=== PATIENT | male | born 1965 | race African-American/Black ===

== ENCOUNTER 2019-06-25 11:38 | Emergency (ER) | payer MEDICAID ==
[~2019-06-25] VITALS: Ht 177.8 cm; Wt 73.0 kg
[2019-06-25] MEDS ORDERED: LEVETIRACETAM 500MG PREMIX 100 ML IV ONE (12:30)
[2019-06-25 13:08] LABS: BASOPHILS % 0.7 % (0.0-2.0); EOSINOPHILS % 1.2 % (0.0-5.0); HEMATOCRIT. 48.7 % (42.0-52.0); HEMOGLOBIN. 15.9 g/dL (14.0-18.0); LYMPHOCYTES % 19.5 % (20.0-50.0); MEAN CORPUSCULAR HEMOGLOBIN 28.8 pg (28.0-32.0); MEAN PLATELET VOLUME 10.1 fl (7.4-10.4); NEUTROPHILS % 67.6 % (40.0-76.0); PLATELET 132 x1000/uL (130-400); RED BLOOD CELL COUNT 5.54 mill/uL (4.7-6.1); RED CELL DISTRIBUTION WIDTH 13.6 % (11.6-14.6)
[2019-06-25 13:18] LABS: CHLORIDE 108 mEq/L (98-107)
[2019-06-25 13:22] LABS: ETHANOL BLOOD < 10 mg/dL
[2019-06-25 15:07] VITALS: BP 117/82
== END 2019-06-26 14:48 | disposition home or self-care (01) ==
LOC: ER 11:50 → EDBD 11:50 → ER 06-26 14:48
DX: G40.909 Epilepsy, unspecified, not intractable, without status epilepticus (principal)
CPT/HCPCS: 36415; 70450; 80053; 80320; 82962; 85025; 93005; 96365; 99285; J1953; Z7610; G0480

== ENCOUNTER 2019-09-09 10:06 | Emergency (ER) | payer MEDICAID ==
[~2019-09-09] VITALS: Ht 177.8 cm; Wt 75.0 kg
[2019-09-09] MEDS ORDERED: KETOROLAC 30MG/ML VIAL IV STA (11:18)
[2019-09-09] MEDS ORDERED: ONDANSETRON HCL 4MG/2ML INJ IV STA (11:18)
[2019-09-09] MEDS ORDERED: SODIUM CHLORIDE 0.9% 1,000 ML IV ONE (11:18)
[2019-09-09 11:31] LABS: BASOPHILS % 0.9 % (0.0-2.0); EOSINOPHILS % 0.5 % (0.0-5.0); HEMATOCRIT. 46.6 % (42.0-52.0); HEMOGLOBIN. 15.6 g/dL (14.0-18.0); LYMPHOCYTES % 23.7 % (20.0-50.0); MEAN CORPUSCULAR HEMOGLOBIN 29.1 pg (28.0-32.0); MEAN CORPUSCULAR VOLUME 87.1 fL (80.0-94.0); MEAN PLATELET VOLUME 11.6 fl (7.4-10.4); MONOCYTES % 12.1 % (2.0-8.0); NEUTROPHILS % 62.8 % (40.0-76.0); PLATELET 131 x1000/uL (130-400); RED BLOOD CELL COUNT 5.35 mill/uL (4.7-6.1); RED CELL DISTRIBUTION WIDTH 13.7 % (11.6-14.6)
[2019-09-09 11:33] LABS: CHLORIDE 106 mEq/L (98-107)
[2019-09-09 11:35] LABS: CLARITY URINE CLOUDY (CLEAR); COLOR URINE YELLOW (YELLOW); KETONES URINE NEGATIVE (NEGATIVE); LEUKOCYTE ESTERASE URINE 3+ (NEGATIVE); NITRITE URINE NEGATIVE (NEGATIVE); OCCULT BLOOD URINE NEGATIVE (NEGATIVE); PH URINE 6.5 (4.5-8.0); PROTEIN URINE TRACE (NEGATIVE); SPECIFIC GRAVITY URINE 1.018 (1.005-1.030)
[2019-09-09 11:37] LABS: PROTHROMBIN TIME 10.9 sec (9.6-11.0)
[2019-09-09 14:06] VITALS: BP 145/46
[2019-09-10 10:01] LABS: *AMPHETAMINES SCREEN URINE NEGATIVE (NEGATIVE); *BARBITURATES SCREEN URINE NEGATIVE (NEGATIVE); *BENZODIAZEPINES SCREEN URINE NEGATIVE (NEGATIVE); *COCAINE SCREEN URINE NEGATIVE (NEGATIVE); METHADONE URINE SCREEN NEGATIVE (NEGATIVE); OPIATES URINE SCREEN NEGATIVE (NEGATIVE); PHENCYCLIDINE URINE SCREEN NEGATIVE (NEGATIVE)
[2019-09-10 10:02] LABS: CANNABINOID URINE SCREEN PRESUMTIVE POSITIVE (NEGATIVE)
== END 2019-09-09 14:41 | disposition home or self-care (01) ==
LOC: ER 10:06
DX: N39.0 Urinary tract infection, site not specified (principal); F12.10 Cannabis abuse, uncomplicated
CPT/HCPCS: 36415; 74176; 80053; 80305; 81003; 83690; 85025; 85610; 87086; 93005; 96374; 96375; 99285; J1885; J2405; J7030

== ENCOUNTER 2020-02-09 16:46 | Emergency (ER) | payer MEDICAID ==
[~2020-02-09] VITALS: Ht 177.8 cm; Wt 70.0 kg
[2020-02-09] MEDS ORDERED: VANCOMYCIN 1 G PREMIX 200 ML IV STA (21:28)
[2020-02-09] MEDS ORDERED: ONDANSETRON HCL 4MG/2ML INJ IV STA ×2 (21:28)
[2020-02-09] MEDS ORDERED: MORPHINE SULFATE 4 MG/ML CPJ (NOT FOR IM USE) IV STA ×2 (21:28)
[2020-02-09] MEDS ORDERED: ACETAMINOPHEN 325MG TABLET PO STA (21:28)
[2020-02-09] MEDS ORDERED: PIPERACILLIN/TAZ 3.375G PREMIX 50 ML IV STA (21:28)
[2020-02-09] MEDS ORDERED: SODIUM CHLORIDE 0.9% 1,000 ML IV ONE ×2 (21:30)
[2020-02-09] MEDS ORDERED: VANCOMYCIN 1 G PREMIX 200 ML IV ONE (21:30)
[2020-02-09 23:01] LABS: HEMATOCRIT. 46.4 % (42.0-52.0); MEAN CORPUSCULAR HEMOGLOBIN 28.2 pg (28.0-32.0); MEAN CORPUSCULAR VOLUME 87.1 fL (80.0-94.0); MEAN PLATELET VOLUME 11.2 fl (7.4-10.4); PLATELET 232 x1000/uL (130-400); RED BLOOD CELL COUNT 5.33 mill/uL (4.7-6.1); RED CELL DISTRIBUTION WIDTH 13.1 % (11.6-14.6)
[2020-02-09 23:09] LABS: CHLORIDE 103 mEq/L (98-107)
[2020-02-09 23:11] LABS: PARTIAL THROMBOPLASTIN TIME 39.4 sec (23.4-31.0); PROTHROMBIN TIME 10.9 sec (9.6-11.0)
[2020-02-09] MEDS ORDERED: TETANUS, DIPHTHERIA, PERTUSSIS VAC/PF 0.5ML (>7YR OLD) IM ONE (23:15)
[2020-02-09 23:23] LABS: PLATELET ESTIMATE NORMAL
[2020-02-10] MEDS ORDERED: TETANUS, DIPHTHERIA, PERTUSSIS VAC/PF 0.5ML (>7YR OLD) IM ONE (02:15)
[2020-02-10] MEDS ORDERED: MORPHINE SULFATE 4 MG/ML CPJ (NOT FOR IM USE) IV SCH (02:15)
[2020-02-10 02:44] VITALS: BP 121/88
== END 2020-02-10 03:09 ==
LOC: ER 16:46
DX: T25.311A Burn of third degree of right ankle, initial encounter (principal); T30.0 Burn of unspecified body region, unspecified degree; T31.10 Burns involving 10-19% of body surface with 0% to 9% third degree burns; F17.200 Nicotine dependence, unspecified, uncomplicated; Z98.890 Other specified postprocedural states; X08.8XXA Exposure to other specified smoke, fire and flames, initial encounter; Y93.9 Activity, unspecified; Y92.89 Other specified places as the place of occurrence of the external cause; Y99.8 Other external cause status
CPT/HCPCS: 36415; 71045; 80053; 83605; 84145; 85025; 85610; 85730; 87040; 90471; 90715; 93005; 93971; 96365; 96366; 96367; 96375; 99285; J2270; J2405; J2543; J3370; J7030

== ENCOUNTER 2021-05-08 23:24 | Emergency (ER) | payer MEDICAID ==
[~2021-05-08] VITALS: Ht 177.8 cm; Wt 69.0 kg
[2021-05-09 01:08] LABS: HEMATOCRIT. 40.7 % (42.0-52.0); HEMOGLOBIN. 13.8 g/dL (14.0-18.0); MEAN CORPUSCULAR HEMOGLOBIN 28.7 pg (28.0-32.0); MEAN CORPUSCULAR VOLUME 84.6 fL (80.0-94.0); PLATELET 152 x1000/uL (130-400); RED BLOOD CELL COUNT 4.81 mill/uL (4.7-6.1); RED CELL DISTRIBUTION WIDTH 13.8 % (11.6-14.6)
[2021-05-09 01:26] LABS: ETHANOL BLOOD < 10 mg/dL
[2021-05-09 01:28] LABS: CHLORIDE 106 mEq/L (98-107)
[2021-05-09 02:58] LABS: PLATELET ESTIMATE NORMAL
[2021-05-09] MEDS ORDERED: TOPUD PO ×3 (07:15→08:31)
[2021-05-09 08:00] VITALS: BP 114/72
[2021-05-09 08:04] LABS: CLARITY URINE TURBID (CLEAR); COLOR URINE YELLOW (YELLOW); KETONES URINE 1+ (NEGATIVE); LEUKOCYTE ESTERASE URINE 3+ (NEGATIVE); NITRITE URINE POSITIVE (NEGATIVE); OCCULT BLOOD URINE 2+ (NEGATIVE); PH URINE 6.5 (4.5-8.0); PROTEIN URINE 2+ (NEGATIVE); SPECIFIC GRAVITY URINE 1.014 (1.005-1.030)
[2021-05-09 08:27] LABS: *BARBITURATES SCREEN URINE NEGATIVE (NEGATIVE)
[2021-05-09 08:28] LABS: *AMPHETAMINES SCREEN URINE NEGATIVE (NEGATIVE); *BENZODIAZEPINES SCREEN URINE NEGATIVE (NEGATIVE); *COCAINE SCREEN URINE NEGATIVE (NEGATIVE)
[2021-05-09 08:29] LABS: CANNABINOID URINE SCREEN PRESUMTIVE POSITIVE (NEGATIVE); METHADONE URINE SCREEN NEGATIVE (NEGATIVE); OPIATES URINE SCREEN NEGATIVE (NEGATIVE); PHENCYCLIDINE URINE SCREEN NEGATIVE (NEGATIVE)
[2021-05-09] MEDS ORDERED: NITR100C PO (08:31)
== END 2021-05-09 08:00 | disposition home or self-care (01) ==
LOC: ER 23:24
DX: N39.0 Urinary tract infection, site not specified (principal); I10 Essential (primary) hypertension; I49.1 Atrial premature depolarization; Z20.822 Contact with and (suspected) exposure to COVID-19; G40.909 Epilepsy, unspecified, not intractable, without status epilepticus; Z86.16 Personal history of COVID-19; Z79.899 Other long term (current) drug therapy
CPT/HCPCS: 36415; 71045; 80053; 80305; 80320; 81003; 85025; 87077; 87186; 87426; 87804; 93005; 99285; G0480

== ENCOUNTER 2021-05-20 16:44 | Emergency (ER) | payer MEDICAID ==
[~2021-05-20] VITALS: Ht 177.8 cm; Wt 69.0 kg
[~2021-05-20 16:44] MED LIST: NITR100C PO; TOPUD PO
[2021-05-20 20:40] LABS: CLARITY URINE CLOUDY (CLEAR); COLOR URINE YELLOW (YELLOW); KETONES URINE NEGATIVE (NEGATIVE); LEUKOCYTE ESTERASE URINE 3+ (NEGATIVE); NITRITE URINE NEGATIVE (NEGATIVE); OCCULT BLOOD URINE TRACE (NEGATIVE); PROTEIN URINE NEGATIVE (NEGATIVE); SPECIFIC GRAVITY URINE 1.008 (1.005-1.030)
[2021-05-20] MEDS ORDERED: CEFTRIAXONE SODIUM 1 G/VIAL IM NR (21:00)
[2021-05-20] MEDS ORDERED: SULF1TAB48 MT (21:51)
[2021-05-20 22:32] VITALS: BP 142/85
== END 2021-05-20 22:34 | disposition home or self-care (01) ==
LOC: ER 16:44
DX: N39.0 Urinary tract infection, site not specified (principal); R03.0 Elevated blood-pressure reading, without diagnosis of hypertension; G40.909 Epilepsy, unspecified, not intractable, without status epilepticus
CPT/HCPCS: 81003; 87077; 87086; 87186; 96372; 99283; J0696

== ENCOUNTER 2021-06-04 17:19 | Emergency (ER) | payer SELFPAY ==
[~2021-06-04] VITALS: Ht 177.8 cm; Wt 69.0 kg
[~2021-06-04 17:19] MED LIST changes: +SULF1TAB48 MT
[2021-06-04 18:03] LABS: BASOPHILS % 0.9 % (0.0-2.0); EOSINOPHILS % 1.8 % (0.0-5.0); HEMOGLOBIN. 13.4 g/dL (14.0-18.0); LYMPHOCYTES % 34.2 % (20.0-50.0); MEAN CORPUSCULAR HEMOGLOBIN 28.5 pg (28.0-32.0); MEAN CORPUSCULAR VOLUME 86.8 fL (80.0-94.0); MEAN PLATELET VOLUME 10.4 fl (7.4-10.4); MONOCYTES % 10.8 % (2.0-8.0); NEUTROPHILS % 52.3 % (40.0-76.0); PLATELET 186 x1000/uL (130-400); RED BLOOD CELL COUNT 4.72 mill/uL (4.7-6.1); RED CELL DISTRIBUTION WIDTH 13.8 % (11.6-14.6)
[2021-06-04 18:14] LABS: CHLORIDE 108 mEq/L (98-107)
[2021-06-04] MEDS ORDERED: IBUP-2029 MT (19:12)
[2021-06-04 19:15] VITALS: BP 140/104
[2021-06-04] MEDS ORDERED: IBUPROFEN 600MG TABLET PO ONE (19:15)
== END 2021-06-04 19:19 | disposition home or self-care (01) ==
LOC: ER 17:19
DX: R07.89 Other chest pain (principal)
CPT/HCPCS: 36415; 71045; 80053; 83880; 84484; 85025; 85379; 93005; 99285